=== PATIENT | female | born 1980 | race Asian ===

== ENCOUNTER 2016-10-25 16:35 | Inpatient (IN) | payer SELFPAY ==
[~2016-10-25] VITALS: Ht 167.6 cm; Wt 64.4 kg
[2016-10-25] MEDS ORDERED: LACTATED RINGERS 1,000 ML IV SCH (16:59)
[2016-10-25] MEDS ORDERED: CITRIC ACID/SODIUM CITRATE 30 ML UDC PO SCH (17:00)
[2016-10-25] MEDS ORDERED: IBUPROFEN 800 MG TAB PO PRN ×2 (17:00→18:55)
[2016-10-25] MEDS ORDERED: MORPHINE PRES FREE 10 MG/10 ML AMP IV ONE (17:12)
[2016-10-25] MEDS ORDERED: fentaNYL 0.05 MG/ML VIAL ONE (17:12)
[2016-10-25 17:30] VITALS: BP 120/78
[2016-10-25] MEDS ORDERED: CITRIC ACID/SODIUM CITRATE 30 ML UDC ONE (17:38)
[2016-10-25] MEDS ORDERED: OXYTOCIN 10 UNITS/ML VIAL ONE ×2 (18:26→21:08)
[2016-10-25] MEDS ORDERED: TRIAMCINOLONE 40 MG/ML 5ML VIAL ONE (18:26)
[2016-10-25] MEDS ORDERED: ONDANSETRON 4 MG/2 ML VIAL IVP PRN ×2 (18:30)
[2016-10-25] MEDS ORDERED: NALBUPHINE 10 MG/ML AMP IVP PRN (18:30)
[2016-10-25] MEDS ORDERED: NALOXONE 0.4 MG/ML VIAL IVP PRN ×3 (18:30)
[2016-10-25] MEDS ORDERED: diphenhydrAMINE 50 MG/ML VIAL IVP PRN (18:30)
[2016-10-25] MEDS ORDERED: KETOROLAC 60 MG/2 ML VIAL IM PRN (18:30)
[2016-10-25] MEDS ORDERED: MEASLES, MUMPS, AND RUBELLA 1 VIAL SQVAC PRN (18:55)
[2016-10-25] MEDS ORDERED: TRIMETHOBENZAMIDE 200 MG/2 ML SYR IM PRN (18:55)
[2016-10-25] MEDS ORDERED: METHYLERGONOVINE 0.2 MG/ML AMP IM PRN (18:55)
[2016-10-25] MEDS ORDERED: TEMAZEPAM 15 MG CAP PO PRN (18:55)
[2016-10-25] MEDS ORDERED: OXYTOCIN 20 UNITS/LR PREMIX 1,000 ML IV SCH (18:55)
[2016-10-25] MEDS ORDERED: oxyCODONE/APAP 5/325 MG 1 TAB TAB PO PRN (18:55)
[2016-10-25] MEDS ORDERED: OXYTOCIN 20 UNITS/LR PREMIX 1,000 ML IV ONE ×2 (19:08→20:34)
[2016-10-25] MEDS ORDERED: ONDANSETRON 4 MG/2 ML VIAL ONE ×2 (19:50→23:24)
[2016-10-25] MEDS ORDERED: CARBOPROST 250 MCG/ML AMP IM ONE (20:52)
[2016-10-25] MEDS ORDERED: HETASTARCH 6% 500 ML IV ONE (20:53)
[2016-10-25] MEDS ORDERED: FUROSEMIDE 20 MG/2 ML VIAL IVP SCH (21:26)
[2016-10-25] MEDS ORDERED: FUROSEMIDE 40 MG/4 ML VIAL IVP ONE (21:30)
[2016-10-25] MEDS ORDERED: KETOROLAC 30 MG/ML VIAL IVP PRN (22:15)
[2016-10-26] MEDS ORDERED: KETOROLAC 60 MG/2 ML VIAL IM ONE (00:20)
[2016-10-26] MEDS ORDERED: FUROSEMIDE 20 MG/2 ML VIAL IVP SCH (08:00)
[2016-10-26] MEDS ORDERED: INFLUENZA VIRUS VACCINE QUAD 0.5 ML SYR IMVAC SCH (08:00)
--- NOTE | 2016-10-26 09:12 | NUR ---
PATIENT HAS BEEN SCREENED AND CATEGORIZED LOW NUTRITION RISK. PATIENT WILL BE SEEN WITHIN 7 DAYS OF ADMISSION. 11/01/[address]
[2016-10-26] MEDS ORDERED: METOCLOPRAMIDE 10 MG/2 ML INJ VIAL ONE (17:38)
[2016-10-26] MEDS ORDERED: METOCLOPRAMIDE 10 MG/2 ML INJ VIAL IVP SCH (17:40)
[2016-10-26] MEDS: FERROUS SULFATE 325 MG TABEC PO SCH (17:43)
[2016-10-26] MEDS ORDERED: METOCLOPRAMIDE 10 MG TAB PO SCH (18:07)
[2016-10-26] MEDS: DOCUSATE SOD/SENNA 50/8.6 MG 1 TAB PO SCH (20:36)
[2016-10-26] MEDS: HYDROcodone/APAP 5/325 MG 1 TAB TAB PO PRN (20:37)
[2016-10-27] MEDS: HYDROcodone/APAP 5/325 MG 1 TAB TAB PO PRN ×2 (02:49→20:17)
[2016-10-27] MEDS ORDERED: METOCLOPRAMIDE 10 MG TAB PO SCH (07:30)
[2016-10-27] MEDS: SIMETHICONE 80 MG TAB.CHEW PO PRN ×2 (12:33→17:13)
[2016-10-27] MEDS: FERROUS SULFATE 325 MG TABEC PO SCH ×2 (12:34→17:14)
[2016-10-27] MEDS: SODIUM PHOSPHATE 118 ML ENEM RC PRN ×2 (16:40→18:14)
[2016-10-27] MEDS: METOCLOPRAMIDE 10 MG TAB PO PRN ×2 (17:13→18:11)
[2016-10-27] MEDS: DOCUSATE SOD/SENNA 50/8.6 MG 1 TAB PO SCH ×2 (20:16→21:00)
[2016-10-28] MEDS: SIMETHICONE 80 MG TAB.CHEW PO PRN ×3 (09:04→17:57)
[2016-10-28] MEDS: METOCLOPRAMIDE 10 MG TAB PO PRN ×3 (09:04→17:57)
[2016-10-28] MEDS: FERROUS SULFATE 325 MG TABEC PO SCH ×3 (09:04→17:57)
[2016-10-28] MEDS ORDERED: FUROSEMIDE 20 MG/2 ML VIAL IVP ONE ×2 (15:15→17:42)
[2016-10-28] MEDS ORDERED: hydrALAZINE 20 MG/ML VIAL IM ONE (20:50)
[2016-10-29] MEDS ORDERED: LABETALOL 100 MG TAB PO SCH ×2 (00:30→09:00)
[2016-10-29] MEDS: FERROUS SULFATE 325 MG TABEC PO SCH ×2 (08:49→13:20)
[2016-10-29] MEDS ORDERED: hydrALAZINE 20 MG/ML VIAL IM SCH (12:30)
[2016-10-29] MEDS ORDERED: hydrALAZINE 10 MG TAB PO ONE (12:30)
[2016-10-29 13:19] VITALS: BP 165/96
== END 2016-10-29 16:50 | disposition home or self-care (01) | DRG 765 ==
LOC: MLD 16:35 → OBSVTOIN 16:35 → MFCC 10-26 09:06
PROVIDERS: ADMIT Obstetrics & Gynecology; ATTEND Obstetrics & Gynecology
PROC: 30233N1 Transfusion of Nonautologous Red Blood Cells into Peripheral Vein, Percutaneous Approach (ICD-10-PCS; 2016-10-25)
PROC: 10D00Z1 Extraction of Products of Conception, Low, Open Approach (ICD-10-PCS; principal; 2016-10-25 18:00)
PROC: 30233L1 Transfusion of Nonautologous Fresh Plasma into Peripheral Vein, Percutaneous Approach (ICD-10-PCS; 2016-10-26)
PROC: 30233K1 Transfusion of Nonautologous Frozen Plasma into Peripheral Vein, Percutaneous Approach (ICD-10-PCS; 2016-10-26)
PROC: 30233N1 Transfusion of Nonautologous Red Blood Cells into Peripheral Vein, Percutaneous Approach (ICD-10-PCS; 2016-10-26)
PROC: 30233L1 Transfusion of Nonautologous Fresh Plasma into Peripheral Vein, Percutaneous Approach (ICD-10-PCS; 2016-10-27)
PROC: 30233K1 Transfusion of Nonautologous Frozen Plasma into Peripheral Vein, Percutaneous Approach (ICD-10-PCS; 2016-10-27)
PROC: 30233N1 Transfusion of Nonautologous Red Blood Cells into Peripheral Vein, Percutaneous Approach (ICD-10-PCS; 2016-10-27)
PROC: 30233N1 Transfusion of Nonautologous Red Blood Cells into Peripheral Vein, Percutaneous Approach (ICD-10-PCS; 2016-10-28)
PROC: 30233L1 Transfusion of Nonautologous Fresh Plasma into Peripheral Vein, Percutaneous Approach (ICD-10-PCS; 2016-10-28)
PROC: 30233K1 Transfusion of Nonautologous Frozen Plasma into Peripheral Vein, Percutaneous Approach (ICD-10-PCS; 2016-10-28)
DX: O34.211 Maternal care for low transverse scar from previous cesarean delivery (principal); D62 Acute posthemorrhagic anemia; O90.81 Anemia of the puerperium; R03.0 Elevated blood-pressure reading, without diagnosis of hypertension; Z37.0 Single live birth; Z3A.38 38 weeks gestation of pregnancy; Z82.49 Family history of ischemic heart disease and other diseases of the circulatory system